=== PATIENT | male | born 1975 | race Caucasian/White ===

== ENCOUNTER 2017-03-16 09:49 | Emergency (ER) | payer MEDICAID, OTHER ==
[~2017-03-16] VITALS: Ht 170.2 cm; Wt 80.0 kg
[~2017-03-16 09:49] MED LIST: LORT7.5T3 PO
[2017-03-16 10:10] VITALS: BP 122/85; PULSE 99; RESP 17; TEMP 98.8; O2SAT 98
[2017-03-16] MEDS ORDERED: NEXI20CA PO (10:24)
[2017-03-16] MEDS ORDERED: ACETAMINOPHEN 325 MG TAB PO ONE (10:30)
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
[2017-03-16 10:50] LABS: AUTOMATED NEUTROPHIL # 5.8 TH/MM3 (1.8-7.7); BASOPHIL % 0.5 % (0.0-2.0); EOSINOPHIL % 0.4 % (0.0-4.0); HEMATOCRIT 44.9 % (39.0-51.0); HEMO FLAGS DIFF FINAL; LYMPHOCYTE # 1.2 TH/MM3 (1.0-4.8); MEAN CELL VOLUME 88.6 FL (80.0-100.0); MEAN CORPUSCULAR HEMOGLOBIN 29.5 PG (27.0-34.0); MEAN CORPUSCULAR HGB CONC 33.3 % (32.0-36.0); MONO % 4.1 % (0.0-8.0); PLATELET COUNT 357 TH/MM3 (150-450); RED BLOOD COUNT 5.07 MIL/MM3 (4.50-5.90); RED CELL DISTRIBUTION WIDTH 13.9 % (11.6-17.2); WHITE BLOOD COUNT 7.4 TH/MM3 (4.0-11.0)
[2017-03-16 10:59] LABS: AMPHETAMINE, URINE NEG (NEG); BARBITURATES, URINE NEG (NEG); COCAINE, URINE NEG (NEG)
[2017-03-16 11:05] LABS: ALT (GPT) 29 U/L (12-78); ANION GAP 8 MEQ/L (5-15); AST (GOT) 17 U/L (15-37); BICARBONATE 26.3 MEQ/L (21.0-32.0); BLOOD UREA NITROGEN 9 MG/DL (7-18); CHLORIDE 106 MEQ/L (98-107); GLOMERULAR FILTRATION RATE 102 ML/MIN (>89); SODIUM (NA) 140 MEQ/L (136-145)
[2017-03-16 11:15] LABS: ALKALINE PHOSPHATASE 59 U/L (45-117); TOTAL BILIRUBIN ADULT 0.3 MG/DL (0.2-1.0)
[2017-03-16 12:00] VITALS: BP 129/72; PULSE 88; RESP 18; TEMP 99.3; O2SAT 96
[2017-03-16 15:00] VITALS: BP 135/63; PULSE 79; RESP 18
[2017-03-16 19:01] VITALS: BP 121/59; PULSE 81; RESP 18
[2017-03-16 22:15] VITALS: BP 117/67; PULSE 75; RESP 18; O2SAT 98
[2017-03-17 02:33] VITALS: BP 132/73; PULSE 77; RESP 18; O2SAT 97
[2017-03-17 06:31] VITALS: BP 132/73; PULSE 84; RESP 18; O2SAT 98
== END 2017-03-17 08:26 ==
LOC: NEPD 09:49 → NEPJ 03-17 08:26
DX: F43.21 Adjustment disorder with depressed mood (principal); K21.9 Gastro-esophageal reflux disease without esophagitis; R51 Headache; Z72.0 Tobacco use
CPT/HCPCS: 80053; 80307; 84443; 85025; 99284